=== PATIENT | female | born 1980 | race Caucasian/White ===

== ENCOUNTER 2016-10-04 03:54 | Inpatient (IN) | payer OTHER ==
[~2016-10-04] VITALS: Ht 167.6 cm; Wt 90.5 kg
[2016-10-04 04:50] VITALS: BP 131/93
[2016-10-04] MEDS: D5%-LACTATED RINGERS 1,000 ML IV SCH ×3 (06:23→22:23)
[2016-10-04] MEDS ORDERED: FENTANYL PF 100 MCG/2ML ONE ×3 (06:23→08:00)
[2016-10-04] MEDS ORDERED: OXYTOCIN 30U/ 0.9% NaCL 500ML 500 ML IV ONE (06:23)
[2016-10-04] MEDS ORDERED: LIDOCAINE 1%, 20ML ONE (06:27)
[2016-10-04] MEDS ORDERED: OXYTOCIN 30U/ 0.9% NaCL 500ML 500 ML ONE ×2 (06:28→21:45)
[2016-10-04] MEDS ORDERED: NEWBORN KIT ONE (06:28)
[2016-10-04] MEDS ORDERED: MISOPROSTOL 200 MCG TABLET ONE (06:28)
[2016-10-04] MEDS ORDERED: CALCIUM CARBONATE 500 MG TAB.CHEW PO PRN (06:30)
[2016-10-04] MEDS ORDERED: ONDANSETRON 2MG/ML, 2ML IVPush PRN (06:30)
[2016-10-04] MEDS ORDERED: FENTANYL PF 100 MCG/2ML IVPush PRN (06:30)
[2016-10-04] MEDS ORDERED: FENTANYL PF 100 MCG/2ML IV PRN (06:30)
[2016-10-04] MEDS ORDERED: TERBUTALINE 1 MG/ML, 1ML SQ PRN (06:30)
[2016-10-04] MEDS: LACTATED RINGERS 1,000 ML IV SCH ×6 (06:38→17:44)
[2016-10-04] MEDS ORDERED: BUPIVACAINE 0.25% ONE (08:01)
[2016-10-04] MEDS ORDERED: FENTANYL/BUPIV./NS/PF 250 ML EPIDCONT ONE (08:01)
[2016-10-04] MEDS ORDERED: FENTANYL/BUPIV./NS/PF 250 ML EPIDCONT SCH (09:42)
[2016-10-04] MEDS ORDERED: LACTATED RINGERS 1,000 ML IVBOLUS PRN (10:00)
[2016-10-04] MEDS ORDERED: EPHEDRINE 50 MG/ML, 1ML IVPush PRN (10:00)
[2016-10-04] MEDS ORDERED: OXYTOCIN 30U/ 0.9% NaCL 500ML 500 ML IV PRN (16:30)
[2016-10-04] MEDS ORDERED: AMPICILLIN 2 GM IV ONE (19:00)
[2016-10-04] MEDS ORDERED: AMPICILLIN 2 GM in SODIUM CHLORIDE 0.9% 100 ML IV ONE (19:00)
[2016-10-04] MEDS ORDERED: GENTAMICIN 80 MG/2 ML IV SCH (19:00)
[2016-10-04] MEDS ORDERED: GENTAMICIN 120 MG in SODIUM CHLORIDE 0.9% 50 ML IV ONE (19:00)
[2016-10-04] MEDS ORDERED: ACETAMINOPHEN 325 MG TABLET ONE (19:03)
[2016-10-04] MEDS ORDERED: ACETAMINOPHEN 325 MG TABLET PO ONE (19:30)
[2016-10-04] MEDS ORDERED: CARBOPROST TROMETHAMINE 250 MCG/ML, 1ML IM PRN (21:00)
[2016-10-04] MEDS ORDERED: DOCUSATE 100 MG CAPSULE PO PRN (21:00)
[2016-10-04] MEDS ORDERED: ACETAMINOPHEN 325 MG TABLET PO PRN (21:00)
[2016-10-04] MEDS ORDERED: METHYLERGONOVINE 0.2 MG/ML IM PRN (21:00)
[2016-10-04] MEDS ORDERED: MISOPROSTOL 200 MCG TABLET PR PRN (21:00)
[2016-10-04] MEDS ORDERED: DIPH,PERTUSS(ACELL),TET VAC/PF NC IM-VACC PRN (21:00)
[2016-10-04] MEDS ORDERED: OXYTOCIN 30U/ 0.9% NaCL 500ML 500 ML IV SCH (21:00)
[2016-10-04] MEDS ORDERED: OXYcodone/APAP 5/325MG TABLET PO PRN ×2 (21:00)
[2016-10-04 23:45] VITALS: BP 130/74
[2016-10-05] MEDS ORDERED: CEFAZOLIN 1,000 MG IM ONE (01:00)
[2016-10-05] MEDS ORDERED: CEFAZOLIN PMX 1GM/50ML 50 ML IV ONE ×2 (01:00→04:00)
[2016-10-05 03:45] VITALS: BP 122/71
[2016-10-05 05:56] LABS: DIFF TOTAL CELLS COUNTED 100 CELL DIFF
[2016-10-05 05:58] LABS: VERIFY COUNTS? YES
[2016-10-05 07:50] VITALS: BP 115/63
[2016-10-05] MEDS: IBUPROFEN 600 MG TABLET PO PRN ×2 (08:32→16:55)
[2016-10-05] MEDS ORDERED: PRENATAL VIT/IRON/FA 1 EACH TABLET PO SCH (09:00)
[2016-10-05 12:00] VITALS: BP 115/74
[2016-10-05 16:15] VITALS: BP 120/81
[2016-10-05] MEDS ORDERED: DOCU-30 PO (18:38)
[2016-10-05] MEDS ORDERED: IBUP-1222 PO (18:38)
[2016-10-05] MEDS ORDERED: IBUP800T PO (18:40)
[2016-10-05] MEDS ORDERED: OXYC-302 PO (18:41)
== END 2016-10-05 21:40 | disposition home or self-care (01) | DRG 775 ==
LOC: LDOP 03:54 → LDIP 06:28 → 2NW 23:09
PROVIDERS: ADMIT Obstetrics & Gynecology; ATTEND Obstetrics & Gynecology
PROC: 10E0XZZ Delivery of Products of Conception, External Approach (ICD-10-PCS; principal; 2016-10-04)
PROC: 0UQMXZZ Repair Vulva, External Approach (ICD-10-PCS; 2016-10-04)
PROC: 00HU33Z Insertion of Infusion Device into Spinal Canal, Percutaneous Approach (ICD-10-PCS; 2016-10-04)
PROC: 3E0R3CZ (ICD-10-PCS; 2016-10-04)
DX: O41.1230 Chorioamnionitis, third trimester, not applicable or unspecified (principal); Z37.0 Single live birth; O71.82 Other specified trauma to perineum and vulva; Z3A.40 40 weeks gestation of pregnancy
CPT/HCPCS: 36415; 85025; 86850; 86900; J0290; J0690; J3010; J1580; J2590; J7120